=== PATIENT | female | born 1995 | race Asian ===

== ENCOUNTER 2016-08-29 01:11 | Emergency (ER) | payer OTHER ==
[2016-08-29] MEDS ORDERED: Ciprofloxacin 0.3% OPTH.SOL* 2.5 ML BTL RIGHT EYE ONE (01:33)
[2016-08-29 02:00] VITALS: BP 117/70
--- NOTE | 2016-10-29 10:55 | ED ---
Skin Complaint - HPI Summary HPI Summary: Patient was at a [employer] when a piece of the plaster ceiling fell and struck her face. She suffered a cut to her nose and just under right eye. Her eye was flushed with water and her contact came out but she denies vision changes. She does have a foreign body sensation in the right eye. She denies LOC, neck pain or BARRIGA. - History of Current Complaint Chief Complaint: EDEyeProblem Time Seen by Provider: 08/29/16 01:14 Stated Complaint: EYE INJURY Hx Obtained From: Patient Onset/Duration: Started Hours Ago Timing: Constant Onset Severity: Mild Current Severity: None Pain Intensity: 0 Pain Scale Used: 0-10 Numeric Skin Location: Face Character: Pain - mild Aggravating Symptom(s): Other: - blinking Alleviating Symptom(s): Nothing Associated Signs & Symptoms: Tenderness - bridge of nose Related History: Trauma - Allergy/Home Medications Allergies/Adverse Reactions: Allergies Allergy/AdvReac Type Severity Reaction Status Date / Time No Known Allergies Allergy Verified 08/29/16 01:51 PMH/Surg Hx/FS Hx/Imm Hx Previously Healthy: Yes Infectious Disease History: No Infectious Disease History: Denies: Traveled Outside the [place] in Last 30 Days - Family History Known Family History: Positive: None - Social History Occupation: Student Lives: Alone Alcohol Use: Weekly Substance Use Type: Reports: None Smoking Status (MU): Never Smoked Tobacco Review of Systems Positive: Other - FB sensation. Negative: Photophobia, Blurred Vision, Diplopia , Drainage, Erythema Positive: Other - 3mm abrasion to bridge of nose Negative: Headache, Weakness, Paresthesia All Other Systems Reviewed And Are Negative: Yes Physical Exam Triage Information Reviewed: Yes Vital Signs On Initial Exam: Initial Vitals Temp Pulse Resp BP Pulse Ox 98.4 F 100 16 120/77 100 08/29/16 01:14 08/29/16 01:14 08/29/16 01:14 08/29/16 01:14 08/29/16 01:14 Vital Signs Reviewed: Yes Appearance: Positive: Well-Appearing, No Pain Distress, Well-Nourished Skin: Positive: Warm, Skin Color Reflects Adequate Perfusion, Dry, Tender - 3 mm abrasion to bridge of nose, Soft Head/Face: Positive: Normal Head/Face Inspection Eyes: Positive: EOMI, ENMANUEL, Conjunctiva Clear ENT: Positive: Hearing grossly normal, Pharynx normal, TMs normal Neck: Positive: Supple, Nontender Respiratory/Lung Sounds: Positive: Breath Sounds Present Cardiovascular: Positive: RRR Neurological: Positive: Sensory/Motor Intact, Alert, Oriented to Person Place, Time, CN Intact II-III, NV Bundle Intact Distally, Normal Gait Psychiatric: Positive: Affect/Mood Appropriate AVPU Assessment: Alert Procedures - Eye Procedure Alcaine Drops Administered: Yes - no abrasion noted Antibiotic Ointment/Drps Admin: right eye Diagnostics - Vital Signs Vital Signs Temp Pulse Resp BP Pulse Ox 08/29/16 01:58 98.6 F 93 16 117/70 08/29/16 01:14 98.4 F 100 16 120/77 100 - Laboratory Lab Statement: Any lab studies that have been ordered have been reviewed, and results considered in the medical decision making process. Course/Dx - Differential Diagnoses - Skin Complaint Differential Diagnoses: Abscess, Cellulitis, Foreign Body - Diagnoses Provider Diagnoses: Abrasion of nose, Corneal abrasion Discharge - Discharge Plan Condition: Stable Disposition: HOME Patient Education Materials: Corneal Abrasion (ED) Referrals: [facility] MERLYN Carrasco [Primary Care Provider] - Will Newman MD [Medical Doctor] - Additional Instructions: Use the drops provided as prescribed until your symptoms have been gone for 24 hours. It is important for you to follow up with Dr. Newman's office in the next 24-48 hours for evaluation since you are a contact wearer. Use ibuprofen for pain. Return to the emergency department if symptoms worsen.
== END 2016-08-29 01:58 | disposition home or self-care (01) ==
LOC: ED 01:11
DX: S00.31XA Abrasion of nose, initial encounter (principal); S05.01XA Injury of conjunctiva and corneal abrasion without foreign body, right eye, initial encounter; W22.8XXA Striking against or struck by other objects, initial encounter; Y93.9 Activity, unspecified; Y92.9 Unspecified place or not applicable; Y99.9 Unspecified external cause status
CPT/HCPCS: 99282; A9270-GY

== ENCOUNTER 2018-01-13 19:03 | Emergency (ER) | payer OTHER ==
--- NOTE | 2018-01-13 20:31 | ED ---
Abdominal Pain/Female - HPI Summary HPI Summary: This patient is a 22 year old F presenting to [facility] accompanied by boyfriend with a chief complaint of intermittent cramping, lower abd pain that began approximately one week ago. The patient rates the pain 0/10 in severity. Symptoms aggravated by sexual intercourse. Symptoms alleviated by nothing. Patient reports vaginal discharge, vaginal bleeding, and nausea. Patient denies vomiting. Patient reports that she had a UTI one week ago, but had her urine checked at [facility] and her UTI had resolved. Patient states she had a normal period, with slightly more bleeding, on 12/27/2017 that lasted a week, following her manipulating the time of the period with her control. - History of Current Complaint Chief Complaint: EDAbdPain Stated Complaint: LOWER ABD PAIN/DISCHARGE Time Seen by Provider: 01/13/18 20:22 Hx Obtained From: Patient Hx Last Menstrual Period: 12/27/2017 ?: No Onset/Duration: Sudden Onset, Lasting Weeks, Still Present Timing: Intermittent Episode Lasting - Hours Severity Initially: Mild Severity Currently: Mild Pain Intensity: 0 Pain Scale Used: 0-10 Numeric Location: Other - Lower Radiates: No Character: Cramping Aggravating Factor(s): Other: - Sexual intercourse Alleviating Factor(s): Nothing Associated Signs and Symptoms: Positive: Other: - Positive vaginal discharge, vaginal bleeding, and nausea. Negative vomiting Allergies/Adverse Reactions: Allergies Allergy/AdvReac Type Severity Reaction Status Date / Time No Known Allergies Allergy Verified 01/13/18 19:12 Home Medications: Home Medications Meliane 1 tab PO DAILY 01/13/18 [History Confirmed 01/13/18] PMH/Surg Hx/FS Hx/Imm Hx Previously Healthy: Yes Opthamlomology History: Denies: Hx Legally Blind EENT History: Denies: Hx Deafness - Surgical History Surgery Procedure, Year, and Place: Denies previous abd surgery Hx Anesthesia Reactions: No Infectious Disease History: No Infectious Disease History: Reports: Traveled Outside the [place] in Last 30 Days - from [place] - Family History Known Family History: Negative: Cardiac Disease, Diabetes - Social History Occupation: Student Lives: Dormitory/Roommates Alcohol Use: Occasionally Hx Substance Use: No Substance Use Type: Reports: None Hx Tobacco Use: No Smoking Status (MU): Never Smoked Tobacco Review of Systems Positive: Nausea. Negative: Vomiting Genitourinary: Other - Positive vaginal discharge and bleeding All Other Systems Reviewed And Are Negative: Yes Physical Exam - Summary Physical Exam Summary: Appearance: Well-appearing, Well-nourished, lying in bed comfortably Skin: Warm, dry, no obvious rash Eyes: sclera anicteric, no conjunctival pallor ENT: mucous membranes moist, pharynx appears normal Neck: Supple, nontender Respiratory: Clear to auscultation, no signs of respiratory distress Cardiovascular: Normal S1, S2. No murmurs. Normal distal pulses in tibial and radial bilaterally. Abdomen: Soft, nontender, normal active bowel sounds present Musculoskeletal: Normal, Strength/ROM Intact Neurological: A&Ox3, awake and alert, mentation is normal, speech is fluent and appropriate Psychiatric: affect is normal, does not appear anxious or depressed Pelvic: Female RN present. External genitalia are normal, no discharge/bleeding seen. Endovaginal speculum exam, scant blood in vagina. Cervix appears normal without discharge. Bimanual exam shows no CMT or uterine tenderness. There is right adenexal tenderness, none on the left. Triage Information Reviewed: Yes Vital Signs On Initial Exam: Initial Vitals Temp Pulse Resp BP Pulse Ox 98.3 F 82 16 110/93 99 01/13/18 19:05 01/13/18 19:05 01/13/18 19:05 01/13/18 19:05 01/13/18 19:05 Vital Signs Reviewed: Yes Diagnostics - Vital Signs Vital Signs Temp Pulse Resp BP Pulse Ox 01/13/18 19:05 98.3 F 82 16 110/93 99 - Laboratory Result Diagrams: 01/13/18 21:05 01/13/18 21:05 Lab Statement: Any lab studies that have been ordered have been reviewed, and results considered in the medical decision making process. - Additional Comments Diagnostic Additional Comments: Transvaginal US reveals, per radiologist, 1. Normal pelvic ultrasound. ED physician has reviewed this radiology report. Re-Evaluation - Re-Evaluation First Eval Re-Evaluation Time: 22:20 Change: Unchanged Comment: Discussed results and plan of care with pt Abdominal Pain Fem Course/Dx - Course Course Of Treatment: This is a 22-year-old sexually active woman with acute pelvic pain described as crampy and intermittent. She has had some self described discharge with some bleeding, but I do not see any definite discharge to my exam. Her exam is fairly unremarkable but for some mild right adnexal tenderness, there is no cervical motion tenderness or uterine tenderness in the left adnexa is nontender. My suspicion for pelvic inflammatory disease is low here, with normal white blood cell count and findings as above. The exact nature of her problem is unclear, but I think she can be safely treated with symptom back therapy with NSAIDs and time. GEN probe and other vaginal swabs are pending at this time and obviously if they come back positive we can call her. - Diagnoses Provider Diagnoses: Acute pelvic pain Discharge - Sign-Out/Discharge Documenting (check all that apply): Patient Departure - Discharge home - Discharge Plan Condition: Good Disposition: HOME Prescriptions: Naproxen [Naprosyn 500 mg tab] 500 mg PO BID #20 tablet Patient Education Materials: Pelvic Pain in Women (ED) Referrals: [facility] [Outside] - 3 Days (if no better) No Primary Care Phys,NOPCP [Primary Care Provider] - - Billing Disposition and Condition Condition: GOOD Disposition: Home - Attestation Statements Document Initiated by Scribe: Yes Documenting Scribe: Ely Wiley Provider For Whom Sebastianibe is Documenting (Include Credential): Rolando Pereira MD Scribe Attestation: I, Ely Wiley, scribed for Rolando Pereira MD on 01/14/18 at 2313. Scribe Documentation Reviewed: Yes Provider Attestation: The documentation as recorded by the Ely ruby accurately reflects the service I personally performed and the decisions made by me, Rolando Pereira MD
[2018-01-13 21:32] LABS: ABS Basophils 0 10^3/ul (0-0.2); ABS Eosinophils 0.1 10^3/ul (0-0.6); ABS Lymphocytes 1.8 10^3/ul (1.0-4.8); ABS Monocytes 0.3 10^3/ul (0-0.8); ABS Neutrophils 2.1 10^3/ul (1.5-7.7); ABS Nucleated RBC 0 10^3/ul; Eosinophil % 2.5 % (0-6); Hematocrit 38 % (35-47); Hemoglobin 12.4 g/dl (12.0-16.0); Lymphocyte % 40.1 % (25-47); Mean Corpuscular HGB Conc 33 g/dl (31-36); Mean Corpuscular Hemoglobin 30 pg (27-31); Mean Corpuscular Volume 90 fL (80-97); Mean Platelet Volume 9.6 um3 (7.4-10.4); Nucleated Red Blood Cells % 0.1; Platelet Count 212 10^3/ul (150-450); Red Blood Count 4.19 10^6/ul (4.00-5.40); Red Cell Distribution Width 14 % (10.5-15); White Blood Count 4.4 10^3/ul (3.5-10.8)
[2018-01-13 21:44] LABS: EGFR Non-African American 105.6 (>60)
--- NOTE | 2018-01-13 22:08 | RAD ---
EXAM: US Pelvis, Transvaginal CLINICAL HISTORY: 22 years old, female; Pain; Pelvic pain; Additional info: Pelvic pain, right adenexal tenderness on pelvic ex TECHNIQUE: Real-time transvaginal pelvic ultrasound (complete) with image documentation. Transvaginal imaging was used for better evaluation of the endometrium and adnexa. COMPARISON: No relevant prior studies available. FINDINGS: Uterus/cervix: Uterus measures 6.6 x 3.0 x 4.2 cm. Endometrial stripe measures 6.4 mm. No myometrial mass. Right ovary: Right ovary measures 2.7 x 1.5 x 2.2 cm. Normal blood flow. Left ovary: Left ovary measures 2.8 x 1.3 x 1.6 cm. Normal blood flow. Free fluid: No free fluid. IMPRESSION: 1. Normal pelvic ultrasound.
[2018-01-13] MEDS ORDERED: Naproxen TAB* 250 MG PO ONE (22:22)
[2018-01-13 22:58] VITALS: BP 119/74
== END 2018-01-13 22:57 | disposition home or self-care (01) ==
LOC: ED 19:03
DX: R10.2 Pelvic and perineal pain (principal)
CPT/HCPCS: 36415; 76830; 80053; 84702; 85025; 87480; 87491; 87510; 87591; 87661; 99283; A9270-GY

== ENCOUNTER 2019-06-04 18:25 | Emergency (ER) | payer OTHER ==
[2019-06-04 19:04] LABS: Influenza A Molecular NEGATIVE (Negative); Influenza B Molecular NEGATIVE (Negative)
[2019-06-04] MEDS ORDERED: Metoclopramide IV* 5 MG/ML 2 ML VIAL IV ONE (19:22)
[2019-06-04] MEDS ORDERED: NS 0.9% 1000 ML** 1,000 ML IV ONE (19:22)
[2019-06-04] MEDS ORDERED: Ketorolac INJ* 30 MG/ML 1 ML VIAL IV ONE (19:22)
[2019-06-04] MEDS ORDERED: diPHENhydraMINE IV* 50 MG/ML 1 ml VIAL (BENADRYL) IV ONE (19:22)
--- NOTE | 2019-06-04 19:28 | ED ---
Headache - HPI Summary HPI Summary: 23-year-old female with chronic headaches presents to the emergency department today complaining of 10 out of 10 bilateral frontal/orbital headache which she has had for 2 days. Patient states she typically takes Excedrin Migraine for relief of her headaches however she is done as well relief. Patient denies having the worst headache of her life. Patient denies family history of subarachnoid hemorrhage, brain bleed, polycystic kidney disease. Patient denies recent trauma. Patient has associated nausea with 2 episodes of vomiting due to her headache. Patient denies other symptoms such as fever, chest pain, abdominal pain, pain with urination, rash, changes in vision, numbness or tingling, neurologic deficit. Patient has a family history of chronic migraine. Surgical history and social history noncontributory. Last menstrual period approximately 2 weeks ago and regular. - History Of Current Complaint Chief Complaint: EDHeadache Stated Complaint: VOMITING AND MIGRAINE PER PT Time Seen by Provider: 06/04/19 19:10 Hx Obtained From: Patient Hx Last Menstrual Period: 12/27/2017 Onset/Duration: Gradual Onset, Started days ago, Still Present Timing: Constant Character: Sharp, Migraine Location of Headache: Frontal Aggravating Factor: Bright Lights Allevating Factors: Medication Associated Signs And Symptoms: Nausea, Vomiting - Allergies/Home Medications Allergies/Adverse Reactions: Allergies Allergy/AdvReac Type Severity Reaction Status Date / Time No Known Allergies Allergy Verified 01/13/18 19:12 PMH/Surg Hx/FS Hx/Imm Hx Sensory History: Denies: Hx Legally Blind, Hx Deafness Opthamlomology History: Denies: Hx Legally Blind - Surgical History Surgery Procedure, Year, and Place: Denies previous abd surgery Hx Anesthesia Reactions: No Infectious Disease History: No Infectious Disease History: Reports: Traveled Outside the [place] in Last 30 Days - Family History Known Family History: Negative: Cardiac Disease, Diabetes - Social History Alcohol Use: Occasionally Hx Substance Use: No Substance Use Type: Reports: None Hx Tobacco Use: No Smoking Status (MU): Never Smoked Tobacco Review of Systems Constitutional: Negative Positive: Photophobia. Negative: Blurred Vision, Diplopia ENT: Negative Cardiovascular: Negative Respiratory: Negative Gastrointestinal: Negative Genitourinary: Negative Musculoskeletal: Negative Skin: Negative Positive: Headache. Negative: Syncope Psychological: Normal All Other Systems Reviewed And Are Negative: Yes Physical Exam - Summary Physical Exam Summary: PERRLA, EOMI, patient has no neurological deficits. Patient has no nuchal rigidity. Triage Information Reviewed: Yes Vital Signs On Initial Exam: Initial Vitals Temp Pulse Resp BP Pulse Ox 98.9 F 89 16 133/89 98 06/04/19 18:26 06/04/19 18:26 06/04/19 18:26 06/04/19 18:26 06/04/19 18:26 Vital Signs Reviewed: Yes Appearance: Positive: Well-Appearing, No Pain Distress, Well-Nourished Skin: Positive: Warm, Skin Color Reflects Adequate Perfusion Eyes: Positive: EOMI, ENMANUEL ENT: Positive: Hearing grossly normal Respiratory/Lung Sounds: Positive: Clear to Auscultation, Breath Sounds Present Cardiovascular: Positive: RRR, S1, S2 Abdomen Description: Positive: Nontender, Soft Bowel Sounds: Positive: Present Musculoskeletal: Positive: Strength/ROM Intact Neurological: Positive: Sensory/Motor Intact, Alert, Oriented to Person Place, Time, Normal Gait, Facial Symmetry, Speech Normal Psychiatric: Positive: Normal, Affect/Mood Appropriate AVPU Assessment: Alert Procedures - Sedation Patient Received Moderate/Deep Sedation with Procedure: No Diagnostics - Vital Signs Vital Signs Temp Pulse Resp BP Pulse Ox 06/04/19 18:26 98.9 F 89 16 133/89 98 - Laboratory Lab Results: Lab Results 06/04/19 Range/Units 18:28 Influenza A (Rapid) Negative (Negative) Influenza B (Rapid) Negative (Negative) Result Diagrams: 06/04/19 19:32 06/04/19 19:32 Lab Statement: Any lab studies that have been ordered have been reviewed, and results considered in the medical decision making process. Re-Evaluation - Re-Evaluation First Eval Re-Evaluation Time: 20:40 - pt headache 0/10 Change: Improved Headache Course/Dx - Course Course Of Treatment: Patient was evaluated in emergency department today for headache. Patient's initial vitals are stable and she is afebrile. CT imaging of the brain was deemed unnecessary as the risks outweighed the benefits given the patient's age and history. Patient was given IV and then medicated with IV Benadryl, IV Reglan, IV Toradol for headache. Patient was also given 1 L normal saline. labs returned WNL. Patient states she felt much better after administration of medication for headache. Patient discharged and told to take ibuprofen as needed for headache as well as Benadryl. Patient discharged with outpatient follow-up. - Diagnoses Differential Diagnosis/HQI/PQRI: Migraine, Viral Syndrome, Other - Headache Provider Diagnoses: Headache Discharge ED - Sign-Out/Discharge Documenting (check all that apply): Patient Departure - Discharge Plan Condition: Stable Disposition: HOME Patient Education Materials: Acute Headache (ED) Referrals: No Primary Care Phys,NOPCP [Primary Care Provider] - Additional Instructions: You were seen in the emergency department today due to a headache. If your headache returns please take ibuprofen 600 mg every 6 hours as needed for pain. You may also take Benadryl 50 mg twice daily. Please follow up with [facility] in 5 days for further evaluation and management. Please return to the emergency department immediately if you develop any new or worsening symptoms. - Billing Disposition and Condition Condition: STABLE Disposition: Home - Attestation Statements Provider Attestation: I was available for consult. This patient was seen by the [facility]. The patient was not presented to, seen by, or examined by me. Capo Oseguera MD
[2019-06-04 19:41] LABS: ABS Eosinophils 0.1 10^3/ul (0-0.6); ABS Monocytes 0.4 10^3/ul (0-0.8); ABS Neutrophils 2.5 10^3/ul (1.5-7.7); Eosinophil % 1.4 %; Hematocrit 39 % (35-47); Hemoglobin 13.3 g/dL (12.0-16.0); Mean Corpuscular HGB Conc 34 g/dL (31-36); Mean Corpuscular Hemoglobin 32 pg (27-31); Mean Corpuscular Volume 94 fL (80-97); Mean Platelet Volume 8.9 fL (7.4-10.4); Nucleated Red Blood Cells % 0.1; Platelet Count 260 10^3/uL (150-450); Red Blood Count 4.17 10^6 /uL (3.70-4.87); Red Cell Distribution Width 13 % (10-15)
[2019-06-04 19:57] LABS: Albumin 4.3 g/dL (3.2-5.2); Albumin/Globulin Ratio 1.4 (1-3); BUN/Creatinine Ratio 13.6 (8-20); Calcium 9.2 mg/dL (8.6-10.3); EGFR African American 154.2 (>60); EGFR Non-African American 127.5 (>60); Globulin 3.1 g/dL (2-4); Magnesium 1.9 mg/dL (1.9-2.7); Potassium 3.5 mmol/L (3.5-5.0); Total Bilirubin 0.9 mg/dL (0.2-1.0); Total Protein 7.4 g/dL (6.4-8.9)
[2019-06-04 20:54] VITALS: BP 116/81
== END 2019-06-04 20:52 | disposition home or self-care (01) ==
LOC: ED 18:25
DX: R51 Headache (principal)
CPT/HCPCS: 36415; 80053; 83735; 85025; 96361; 96374; 96375; 99282; J1200; J1885; J2765